=== PATIENT | female | born 1975 | race Caucasian/White ===

== ENCOUNTER 2025-04-07 12:28 | Emergency (ER) | payer MEDICARE, OTHER ==
[2025-04-07] MEDS ORDERED: Dexamethasone 10 MG/ML VIAL ONE (13:32)
[2025-04-07] MEDS ORDERED: diphenhydrAMINE 50 MG/ML VIAL ONE (13:32)
[2025-04-07] MEDS ORDERED: Famotidine 20 MG TAB ONE (13:33)
== END 2025-04-07 13:51 | disposition home or self-care (01) ==
LOC: CSHERS 12:28
DX: L20.9 Atopic dermatitis, unspecified (principal); I10 Essential (primary) hypertension; E11.9 Type 2 diabetes mellitus without complications
CPT/HCPCS: J1100; J1200; 96372; 99283